=== PATIENT | male | born 1980 | race American Indian/Alaskan Native ===

== ENCOUNTER 2018-05-13 18:09 | Emergency (ER) | payer OTHER ==
[2018-05-13] MEDS ORDERED: ZOFRAN IV ONE (19:11)
[2018-05-13] MEDS ORDERED: MORPHINE IV ONE (19:11)
--- NOTE | 2018-05-13 19:11 | Emergency Department Report ---
ED Shortness of Breath HPI - General Chief Complaint: Dyspnea/Respdistress Stated Complaint: TOD Time Seen by Provider: 05/13/18 19:06 Source: patient Mode of arrival: Ambulatory Limitations: No Limitations - History of Present Illness Initial Comments: Patient is 38 years old male with no significant past medical history until one week ago when he was admitted to a hospital in [place] for pulmonary embolism and pneumonia. Patient is a tow truck driver. Patient flew back from [place] 3 days ago. Patient presented to the ER complaining of left sided chest pain associated with shortness of breath. Patient stated that he is having difficulty taking a deep breath. Patient denied any fever, nausea or vomiting. Patient is on Xarelto and he stated that he is compliant with his medication. MD Complaint: shortness of breath, chest pain -: Sudden Radiation: back Quality: sharp - Related Data Allergies Allergy/AdvReac Type Severity Reaction Status Date / Time No Known Allergies Allergy Unverified 05/13/18 18:54 ED Review of Systems ROS: Stated complaint: TOD Other details as noted in HPI Comment: All other systems reviewed and negative Constitutional: denies: chills, fever Respiratory: shortness of breath, SOB at rest. denies: cough, orthopnea, SOB with exertion, stridor, wheezing Cardiovascular: chest pain. denies: palpitations, dyspnea on exertion, orthopnea Gastrointestinal: denies: abdominal pain, nausea, vomiting, diarrhea, constipation, hematemesis, melena, hematochezia Musculoskeletal: back pain Neurological: denies: headache, weakness, numbness, paresthesias, confusion, abnormal gait ED Past Medical Hx - Past Medical History Previous Medical History?: Yes Hx Pulmonary Embolism: Yes Additional medical history: Pt says some type of heart issue - Surgical History Past Surgical History?: Yes Additional Surgical History: L knee - Social History Smoking Status: Unknown if ever smoked Substance Use Type: None ED Physical Exam - General Limitations: No Limitations General appearance: alert, in no apparent distress - Head Head exam: Present: atraumatic, normocephalic, normal inspection - Eye Eye exam: Present: normal appearance, PERRL - ENT ENT exam: Present: normal exam, normal orophraynx, mucous membranes moist - Neck Neck exam: Present: normal inspection, full ROM. Absent: tenderness, meningismus, lymphadenopathy, thyromegaly - Respiratory Respiratory exam: Present: normal lung sounds bilaterally. Absent: respiratory distress, wheezes, rales, rhonchi, stridor, chest wall tenderness, accessory muscle use, decreased breath sounds, prolonged expiratory - Cardiovascular Cardiovascular Exam: Present: regular rate, normal rhythm, normal heart sounds - GI/Abdominal GI/Abdominal exam: Present: soft, normal bowel sounds. Absent: distended, ten derness, guarding, rebound, rigid, organomegaly, mass, bruit, pulsatile mass, hernia - Extremities Exam Extremities exam: Present: normal inspection, full ROM, normal capillary refill. Absent: tenderness, pedal edema, joint swelling, calf tenderness - Back Exam Back exam: Present: normal inspection, full ROM. Absent: tenderness, CVA tenderness (R), CVA tenderness (L), muscle spasm, paraspinal tenderness, vertebral tenderness - Neurological Exam Neurological exam: Present: alert, oriented X3, CN II-XII intact, normal gait, reflexes normal - Skin Skin exam: Present: warm, intact, normal color ED Course Vital Signs 05/13/18 05/13/18 05/13/18 18:26 18:30 18:47 Temperature 98.4 F Pulse Rate 83 90 Respiratory 13 18 Rate Blood Pressure 120/62 106/83 O2 Sat by Pulse 97 97 100 Oximetry 05/13/18 05/13/18 05/13/18 18:50 19:00 19:16 Temperature Pulse Rate 84 80 83 Respiratory 14 15 19 Rate Blood Pressure 105/86 125/72 O2 Sat by Pulse 97 97 96 Oximetry 05/13/18 05/13/18 05/13/18 19:30 19:46 20:00 Temperature Pulse Rate 80 77 Respiratory 21 13 Rate Blood Pressure 119/81 119/81 113/75 O2 Sat by Pulse 96 97 98 Oximetry 05/13/18 05/13/18 05/13/18 20:16 20:30 20:46 Temperature Pulse Rate Respiratory Rate Blood Pressure 113/75 111/68 111/68 O2 Sat by Pulse 98 96 97 Oximetry 05/13/18 05/13/18 05/13/18 21:00 21:16 21:30 Temperature Pulse Rate Respiratory Rate Blood Pressure 111/68 96/64 96/64 O2 Sat by Pulse 97 98 96 Oximetry 05/13/18 05/13/18 05/13/18 21:45 21:46 22:00 Temperature Pulse Rate Respiratory 18 Rate Blood Pressure 112/72 112/59 O2 Sat by Pulse 99 97 97 Oximetry 05/13/18 23:00 Temperature Pulse Rate Respiratory Rate Blood Pressure 108/60 O2 Sat by Pulse 97 Oximetry ED Medical Decision Making - Lab Data Result diagrams: 05/13/18 19:05 05/13/18 19:05 - Radiology Data Radiology results: report reviewed Referring Physician: HALI CHILDS Patient Name: ANGELIQUE GAINES Date of : 1980 Sex: Male Report Date: 2018-05-14 Report Status: Finalized Findings [facility] [address] [place] [address] Cat Scan Report Signed Patient: ANGELIQUE GAINES MR#: [id number] : 1980 Acct:[id number] Age/Sex: 38 / M ADM Date: 05/13/18 Loc: ED Attending Dr: Ordering Physician: HALI CHILDS Date of Service: 05/13/18 Procedure(s): CT angio chest Accession Number(s): [id number] cc: HALI CHILDS FINAL REPORT PROCEDURE: CT ANGIO CHEST TECHNIQUE: Computerized tomographic angiography of the chest was performed after the IV injection of iodinated nonionic contrast including image processing. The image data was postprocessed using 2- dimensional multiplanar reformatted (MPR) and 3-dimensional (MIP and/or volume rendered) techniques. HISTORY: CHEST PAIN,SOB, PE 10 DAYS AGO COMPARISON: No prior studies are available for comparison. FINDINGS: Heart and pericardium: Normal. Thoracic aorta: Normal. Pulmonary vasculature: Normal. Lymph nodes: No enlarged thoracic lymph nodes. Lungs: Normal. Pleural space: No effusion, thickening, or pneumothorax. Musculoskeletal structures: No significant abnormality. Upper abdominal structures: No significant abnormality. IMPRESSION: Normal Examination Transcribed By: CO Dictated By: IMMANUEL MARKS MD Electronically Authenticated By: IMMANUEL MARKS MD Signed Date/Time: 05/14/18114 DD/ 3 TD/TT: 05/14/18113 - Medical Decision Making Patient is 38 years old male with no significant past medical history until one week ago when he was admitted to a hospital in [place] for pulmonary embolism and pneumonia. Patient is a tow truck driver. Patient flew back from [place] 3 days ago. Patient presented to the ER complaining of left sided chest pain associated with shortness of breath. Patient stated that he is having difficulty taking a deep breath. Patient denied any fever, nausea or vomiting. Patient is on Xarelto and he stated that he is compliant with his medication. CTA chest is negative for pulmonary embolism. Patient stated that he is feeling much better. I believe patient's symptoms is most likely related to pleurisy. I'll put patient on Naprosyn twice a day for 7 days and advised the patient to follow-up with his primary care physician in the next 2-3 days. Critical care attestation.: If time is entered above; I have spent that time in minutes in the direct care of this critically ill patient, excluding procedure time. ED Disposition Clinical Impression: Chest pain, Shortness of breath, Pleurisy Disposition: TO HOME OR SELFCARE Is pt being admited?: No Condition: Stable Instructions: Chest Pain (ED), Pleurisy (ED) Referrals: [facility] [Provider Group] - 3-5 Days
[2018-05-13 19:21] LABS: Hematocrit 44.3 % (35.5-45.6); Mean Corpuscular HGB Conc 34 % (32-34); Mean Corpuscular Volume 93 fl (84-94); Platelet Count 299 K/mm3 (140-440); Red Blood Count 4.76 M/mm3 (3.65-5.03); Red Cell Distribution Width 13.3 % (13.2-15.2)
[2018-05-13 19:31] LABS: INR 1.86 (0.87-1.13); Partial Thromboplastin Time 33.6 Sec. (24.2-36.6)
[2018-05-13 19:44] LABS: BUN/Creatinine Ratio 9; Blood Urea Nitrogen 9 mg/dL (9-20); Hemolysis Index 15
[2018-05-13 19:58] LABS: Alanine Aminotransferase 64 units/L (7-56); Albumin 4.3 g/dL (3.9-5)
[2018-05-13 19:58] LABS: Basophils % (Manual) 0 % (0.0-1.8); Total Cells Counted 100
[2018-05-13 19:59] LABS: Anisocytosis 1+
[2018-05-13 20:01] LABS: Bilirubin,Direct < 0.2 mg/dL (0-0.2)
--- NOTE | 2018-05-13 20:16 | XRay Report ---
FINAL REPORT PROCEDURE: XR CHEST ROUTINE 2V TECHNIQUE: PA and lateral view of the chest were obtained. HISTORY: Shortness of breath COMPARISON: No prior studies are available for comparison. FINDINGS: Heart size and pulmonary vasculature appear normal. Lungs are clear. No infiltrates masses effusions or pneumothorax are visualized. No acute bony abnormalities are seen IMPRESSION: Negative exam.
[2018-05-13] MEDS ORDERED: ZOFRAN ODT ONE (20:22)
--- NOTE | 2018-05-14 01:15 | Cat Scan Report ---
FINAL REPORT PROCEDURE: CT ANGIO CHEST TECHNIQUE: Computerized tomographic angiography of the chest was performed after the IV injection of iodinated nonionic contrast including image processing. The image data was postprocessed using 2-dim ensional multiplanar reformatted (MPR) and 3-dimensional (MIP and/or volume rendered) techniques. HISTORY: CHEST PAIN,SOB, PE 10 DAYS AGO COMPARISON: No prior studies are available for comparison. FINDINGS: Heart and pericardium: Normal. Thoracic aorta: Normal. Pulmonary vasculature: Normal. Lymph nodes: No enlarged thoracic lymph nodes. Lungs: Normal. Pleural space: No effusion, thickening, or pneumothorax. Musculoskeletal structures: No significant abnormality. Upper abdominal structures: No significant abnormality. IMPRESSION: Normal Examination
[2018-05-14 01:53] VITALS: BP 103/55
== END 2018-05-14 01:52 | disposition home or self-care (01) ==
LOC: EDBD → ED 18:09
DX: R07.89 Other chest pain (principal); R09.1 Pleurisy
CPT/HCPCS: 36415; 71046; 71275; 80048; 80076; 85007; 85025; 85379; 85610; 85730; 93005; 93010; 96374; 96375; 99284; J2270; J2405; Q9967; Q0162

== ENCOUNTER 2018-05-28 11:59 | Emergency (ER) | payer OTHER ==
--- NOTE | 2018-05-28 12:33 | Emergency Department Report ---
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 Plan CXR and Labs EKG
--- NOTE | 2018-05-28 13:08 | Emergency Department Report ---
ED Chest Pain HPI - General Chief Complaint: Chest Pain Stated Complaint: PAIN UPON RESPIRATION Time Seen by Provider: 05/28/18 12:22 Source: patient Mode of arrival: Ambulatory Limitations: No Limitations - History of Present Illness Initial Comments: 38-year-old male with a past medical history of pulmonary embolism diagnosed in [place] in April presents to the hospital continual left sided chest pain and intermittent shortness of breath. Symptoms ongoing since April. Patient is a local company truck driver. He he was seen here on May 14 complaining of pleuritic left-sided chest pain. CT angiogram at that time was negative for pulmonary embolism. Patient was placed on Naprosyn, Zofran, tramadol and addition to his prescribed Xarelto. He presents to the hospital because continues to have chest pain described as a tightness radiating to his left shoulder and prescribed meds are not helping. He also has pain with swallowing, talking, and movement. Patient has not followed up with a primary care doctor. He states that he is currently involved in a Workmen's claim regarding his pulmonary obtained while on the job. Patient was prescribed Xarelto prescribed by in [place]. He has 3 tablets left of Xarelto 15mg BID in his bottle. He is yet to follow up with a primary care doctor or [facility]. Severity scale (0 -10): 10 - Related Data Previous Rx's Medication Instructions Recorded Last Taken Type Naproxen [Naprosyn] 500 mg PO BID #14 tablet 05/14/18 Unknown Rx Ondansetron [Zofran Odt] 4 mg PO Q8HR PRN #14 tab.rapdis 05/14/18 Unknown Rx RX: traMADol [Ultram 50 MG tab] 50 mg PO Q4HR PRN #14 tablet 05/14/18 Unknown Rx Famotidine [Pepcid] 20 mg PO BID #60 tablet 05/28/18 Unknown Rx HYDROcodone/APAP 5-325 [[place] 1 each PO Q6HR PRN #14 tablet 05/28/18 Unknown Rx 5/325] Rivaroxaban [Xarelto] 20 mg PO QDAY #30 tab 05/28/18 Unknown Rx Allergies Allergy/AdvReac Type Severity Reaction Status Date / Time No Known Allergies Allergy Unverified 05/13/18 18:54 Heart Score - HEART Score History: Slightly suspicious EKG: Normal Age: < 45 Risk factors: No known risk factors Troponin: < normal limit HEART Score: 0 ED Review of Systems ROS: Stated complaint: PAIN UPON RESPIRATION Other details as noted in HPI Comment: All other systems reviewed and negative ED Past Medical Hx - Past Medical History Hx Pulmonary Embolism: Yes Additional medical history: Pt says some type of heart issue, PE - Surgical History Additional Surgical History: L knee - Social History Smoking Status: Former Smoker Substance Use Type: None - Medications Home Medications: Home Medications Medication Instructions Recorded Confirmed Last Taken Type Naproxen [Naprosyn] 500 mg PO BID #14 tablet 05/14/18 Unknown Rx Ondansetron [Zofran Odt] 4 mg PO Q8HR PRN #14 tab.rapdis 05/14/18 Unknown Rx RX: traMADol [Ultram 50 MG tab] 50 mg PO Q4HR PRN #14 tablet 05/14/18 Unknown Rx Famotidine [Pepcid] 20 mg PO BID #60 tablet 05/28/18 Unknown Rx HYDROcodone/APAP 5-325 [[place] 1 each PO Q6HR PRN #14 tablet 05/28/18 Unknown Rx 5/325] Rivaroxaban [Xarelto] 20 mg PO QDAY #30 tab 05/28/18 Unknown Rx ED Physical Exam - General Limitations: No Limitations - Other Other exam information: General: No limitations, patient is alert in no acute distress Head exam: Atraumatic, normocephalic Eyes exam: Normal appearance, nonicteric sclerae ENT: Moist mucous membrane, normal oropharynx Neck exam: Normal inspection, full range of motion, no meningismus nontender Respiratory exam: Clear to auscultation bilateral, no wheezes, rales, crackles. Reproducible sternal and left-sided chest wall tenderness to palpation Cardiovascular: Normal rate and rhythm, normal heart sounds Abdomen: Soft, nondistended, epigastric tenderness, with normal bowel sounds, no rebound, or guarding Extremity: Full range of motion normal inspection no deformity, no calf tenderness or edema Back: Normal Inspection, full range of motion, no tenderness Neurologic: Alert, oriented x3, cranial nerves intact, no motor or sensory deficit Psychiatric: normal affect, normal mood Skin: Warm, dry, intact ED Course Vital Signs 05/28/18 05/28/18 05/28/18 12:28 13:47 13:48 Temperature 98.7 F Pulse Rate 100 H 95 H Respiratory 20 18 18 Rate Blood Pressure 142/85 Blood Pressure 125/75 [Left] O2 Sat by Pulse 98 99 Oximetry 05/28/18 17:53 Temperature Pulse Rate 77 Respiratory 18 Rate Blood Pressure Blood Pressure 130/78 [Left] O2 Sat by Pulse 99 Oximetry - Reevaluation(s) Reevaluation #1: 05/28/18 16:13 Patient continues to have reproducible chest wall tenderness. When I palpate his chest he moves my hand away stating it hurts. He also has epigastric tend erness on exam. Minimum improvement with [place] reported. Maalox, viscous lidocaine, and Percocet ordered. I spent an extensive amount of time speaking to the patient because he think his pain is because his left lung is swollen. I tried to explain what pleurisy was in that his lung was not physically swollen. I explained that his last CT chest and chest x-ray today are normal. He has no hypoxia or tachypnea and has a negative d-dimer. I Also tried to explain that he needs to continue his Xarelto even though his last CTA did not show a pulmonary embolism. I stressed that he needs to be seen by a [facility] and a primary care doctor in the ER is no substitute for that. He is requesting a note to medically clear him to go back to work. There is no emergent reason why he cannot go back to work but once again is stressed that he needs to follow up. DARRON score - Darron Score Age > 65: (0) No Aspirin use within the Past 7 Days: (0) No 3 or more CAD Risk Factors: (0) No 2 or more Angina events in past 24 hrs: (0) No Known CAD with more than 50% Stenosis: (0) No Elevated Cardiac Markers: (0) No ST Deviation Greater than 0.5mm: (0) No DARRON Score: 0 ED Medical Decision Making - Lab Data Result diagrams: 05/28/18 13:05 05/28/18 13:08 Lab Results 05/28/18 05/28/18 05/28/18 Range/Units 13:05 13:08 13:08 WBC 5.0 (4.5-11.0) K/mm3 RBC 5.06 H (3.65-5.03) M/mm3 Hgb 15.6 H (11.8-15.2) gm/dl Hct 46.4 H (35.5-45.6) % MCV 92 (84-94) fl MCH 31 (28-32) pg MCHC 34 (32-34) % RDW 13.4 (13.2-15.2) % Plt Count 197 (140-440) K/mm3 Add Manual Diff Complete Total Counted 100 Seg Neutrophils % Desulfurizer Hand Seg Neuts % (Manual) 35.0 L (40.0-70.0) % Band Neutrophils % 0 % Lymphocytes % (Manual) 53.0 H (13.4-35.0) % Reactive Lymphs % (Man) 0 % Monocytes % (Manual) 7.0 (0.0-7.3) % Eosinophils % (Manual) 5.0 H (0.0-4.3) % Basophils % (Manual) 0 (0.0-1.8) % Metamyelocytes % 0 % Myelocytes % 0 % Promyelocytes % 0 % Blast Cells % 0 % Nucleated RBC % Not Reportable Seg Neutrophils # Man 1.8 (1.8-7.7) K/mm3 Band Neutrophils # 0.0 K/mm3 Lymphocytes # (Manual) 2.7 (1.2-5.4) K/mm3 Abs React Lymphs (Man) 0.0 K/mm3 Monocytes # (Manual) 0.4 (0.0-0.8) K/mm3 Eosinophils # (Manual) 0.3 (0.0-0.4) K/mm3 Basophils # (Manual) 0.0 (0.0-0.1) K/mm3 Metamyelocytes # 0.0 K/mm3 Myelocytes # 0.0 K/mm3 Promyelocytes # 0.0 K/mm3 Blast Cells # 0.0 K/mm3 WBC Morphology Not Reportable Hypersegmented Neuts Not Reportable Hyposegmented Neuts Not Reportable Hypogranular Neuts Not Reportable Smudge Cells Not Reportable Toxic Granulation Not Reportable Toxic Vacuolation Not Reportable Dohle Bodies Not Reportable Pelger-Huet Anomaly Not Reportable [place] Rods Not Reportable Platelet Estimate Consistent w auto Clumped Platelets Not Reportable Plt Clumps, EDTA Not Reportable Large Platelets Not Reportable Giant Platelets Not Reportable Platelet Satelliting Not Reportable Plt Morphology Comment Not Reportable RBC Morphology Not Reportable Dimorphic RBCs Not Reportable Polychromasia Not Reportable Hypochromasia Not Reportable Poikilocytosis Not Reportable Anisocytosis 1+ Microcytosis Not Reportable Macrocytosis Not Reportable Spherocytes Not Reportable Pappenheimer Bodies Not Reportable Sickle Cells Not Reportable Target Cells Not Reportable Tear Drop Cells Not Reportable Ovalocytes Not Reportable Helmet Cells Not Reportable Vent[place] Bodies Not Reportable Viola Rings Not Reportable Keri Cells Not Reportable Bite Cells Not Reportable Crenated Cell Not Reportable Elliptocytes Not Reportable Acanthocytes (Spur) Not Reportable Rouleaux Not Reportable Hemoglobin C Crystals Not Reportable Schistocytes Not Reportable Malaria parasites Not Reportable Tao Bodies Not Reportable Hem Pathologist Commnt No PT 13.3 (12.2-14.9) Sec. INR 0.95 (0.87-1.13) APTT 22.4 L (24.2-36.6) Sec. D-Dimer < 135.00 (0-234) ng/mlDDU Sodium 138 (137-145) mmol/L Potassium 4.7 (3.6-5.0) mmol/L Chloride 99.3 (98-107) mmol/L Carbon Dioxide 26 (22-30) mmol/L Anion Gap 17 mmol/L BUN 7 L (9-20) mg/dL Creatinine 0.9 (0.8-1.5) mg/dL Estimated GFR > 60 ml/min BUN/Creatinine Ratio 8 % Glucose 101 H (75-100) mg/dL Calcium 9.7 (8.4-10.2) mg/dL Total Bilirubin 0.40 (0.1-1.2) mg/dL AST 36 (5-40) units/L ALT 58 H (7-56) units/L Alkaline Phosphatase 65 (35-129) units/L Total Creatine Kinase 275 H (55-170) units/L CK-MB (CK-2) 1.8 (0.0-4.0) ng/mL CK-MB (CK-2) Rel Index 0.6 (0-4) Troponin T < 0.010 (0.00-0.029) ng/mL Total Protein 7.2 (6.3-8.2) g/dL Albumin 4.4 (3.9-5) g/dL Albumin/Globulin Ratio 1.6 % Lipase 52 (13-60) units/L 05/28/18 Range/Units 15:21 WBC (4.5-11.0) K/mm3 RBC (3.65-5.03) M/mm3 Hgb (11.8-15.2) gm/dl Hct (35.5-45.6) % MCV (84-94) fl MCH (28-32) pg MCHC (32-34) % RDW (13.2-15.2) % Plt Count (140-440) K/mm3 Add Manual Diff Total Counted Seg Neutrophils % Seg Neuts % (Manual) (40.0-70.0) % Band Neutrophils % % Lymphocytes % (Manual) (13.4-35.0) % Reactive Lymphs % (Man) % Monocytes % (Manual) (0.0-7.3) % Eosinophils % (Manual) (0.0-4.3) % Basophils % (Manual) (0.0-1.8) % Metamyelocytes % % Myelocytes % % Promyelocytes % % Blast Cells % % Nucleated RBC % Seg Neutrophils # Man (1.8-7.7) K/mm3 Band Neutrophils # K/mm3 Lymphocytes # (Manual) (1.2-5.4) K/mm3 Abs React Lymphs (Man) K/mm3 Monocytes # (Manual) (0.0-0.8) K/mm3 Eosinophils # (Manual) (0.0-0.4) K/mm3 Basophils # (Manual) (0.0-0.1) K/mm3 Metamyelocytes # K/mm3 Myelocytes # K/mm3 Promyelocytes # K/mm3 Blast Cells # K/mm3 WBC Morphology Hypersegmented Neuts Hyposegmented Neuts Hypogranular Neuts Smudge Cells Toxic Granulation Toxic Vacuolation Dohle Bodies Pelger-Huet Anomaly [place] Rods Platelet Estimate Clumped Platelets Plt Clumps, EDTA Large Platelets Giant Platelets Platelet Satelliting Plt Morphology Comment RBC Morphology Dimorphic RBCs Polychromasia Hypochromasia Poikilocytosis Anisocytosis Microcytosis Macrocytosis Spherocytes Pappenheimer Bodies Sickle Cells Target Cells Tear Drop Cells Ovalocytes Helmet Cells [place] Bodies Viola Rings [place] Cells Bite Cells Crenated Cell Elliptocytes Acanthocytes (Spur) Rouleaux Hemoglobin C Crystals Schistocytes Malaria parasites Tao Bodies Hem Pathologist Commnt PT (12.2-14.9) Sec. INR (0.87-1.13) APTT (24.2-36.6) Sec. D-Dimer (0-234) ng/mlDDU Sodium (137-145) mmol/L Potassium (3.6-5.0) mmol/L Chloride (98-107) mmol/L Carbon Dioxide (22-30) mmol/L Anion Gap mmol/L BUN (9-20) mg/dL Creatinine (0.8-1.5) mg/dL Estimated GFR ml/min BUN/Creatinine Ratio % Glucose (75-100) mg/dL Calcium (8.4-10.2) mg/dL Total Bilirubin (0.1-1.2) mg/dL AST (5-40) units/L ALT (7-56) units/L Alkaline Phosphatase (35-129) units/L Total Creatine Kinase (55-170) units/L CK-MB (CK-2) (0.0-4.0) ng/mL CK-MB (CK-2) Rel Index (0-4) Troponin T < 0.010 (0.00-0.029) ng/mL Total Protein (6.3-8.2) g/dL Albumin (3.9-5) g/dL Albumin/Globulin Ratio % Lipase (13-60) units/L - EKG Data -: EKG Interpreted by [facility] EKG shows normal: sinus rhythm, axis (qrs 66), QRS complexes (qrsd 85), ST-T waves (no stemi/t inv) Rate: normal (85) - EKG Data When compared to previous EKG there are: no significant change - Radiology Data Radiology results: report reviewed ROUTINE CHEST, TWO VIEWS: HISTORY: Short of breath. The trachea, heart, mediastinal contour, lung tang and bony thorax are unremarkable. No significant change since 05/13/18. IMPRESSION: Unremarkable chest x-ray. - Medical Decision Making History is negative d-dimer, negative chest x-ray, recent CT angios chest, normal pulse ox, reproducible chest pain on examination.low risk cardiac pt with unchanged ekg and trop neg x2. Patient also has epigastric tenderness H2 aron will be prescribed. Instructed to discontinue Naprosyn while on x arellto. Xarelto will be represcribed recent diagnosis of pulmonary embolism. Unclear patient also had a DVT since records are not currently available. Outpatient follow-up with hematology and PMD once again has been stressed Patient provided a copy of his CAT scan and chest x-ray - Differential Diagnosis PA, PE, angina, pleurisy Critical Care Time: No Critical care attestation.: If time is entered above; I have spent that time in minutes in the direct care of this critically ill patient, excluding procedure time. ED Disposition Clinical Impression: Chest wall pain, Epigastric pain, Hx of pulmonary embolus Disposition: TO HOME OR SELFCARE Is pt being admited?: No Does the pt Need Aspirin: No Condition: Stable Instructions: Chest Pain (ED), Abdominal Pain (ED) Additional Instructions: Take the medication as prescribed. Stop prescribed Naprosyn. It is very important and should follow-up with a primary care doctor and a [facility] for further workup and evaluation. Return if symptoms worsen as indicated by your discharge instructions Prescriptions: Famotidine [Pepcid] 20 mg PO BID #60 tablet HYDROcodone/APAP 5-325 [[place] 5/325] 1 each PO Q6HR PRN #14 tablet PRN Reason: Pain Rivaroxaban [Xarelto] 20 mg PO QDAY #30 tab Referrals: [facility] MD CARLA [Primary Care Provider] - 3-5 Days SHANT ADHIKARI MD [Staff Physician] - 3-5 Days (Transcription Typist) STEFANIE RUBI MD [Staff Physician] - 3-5 Days ( primary care doctor) MONICO SETH MD [Staff Physician] - 3-5 Days (GI doctor ) Time of Disposition: 17:25
[2018-05-28] MEDS ORDERED: NORCO 5/325 PO ONE (13:09)
[2018-05-28 13:15] LABS: Hematocrit 46.4 % (35.5-45.6); Hemoglobin 15.6 gm/dl (11.8-15.2); Mean Corpuscular HGB Conc 34 % (32-34); Mean Corpuscular Volume 92 fl (84-94); Platelet Count 197 K/mm3 (140-440); Red Blood Count 5.06 M/mm3 (3.65-5.03); Red Cell Distribution Width 13.4 % (13.2-15.2)
--- NOTE | 2018-05-28 13:20 | XRay Report ---
ROUTINE CHEST, TWO VIEWS: HISTORY: Short of breath. The trachea, heart, mediastinal contour, lung tang and bony thorax are unremarkable. No significant change since 05/13/18. IMPRESSION: Unremarkable chest x-ray.
[2018-05-28 13:27] LABS: INR 0.95 (0.87-1.13); Partial Thromboplastin Time 22.4 Sec. (24.2-36.6)
[2018-05-28 13:32] LABS: Creatine Kinase MB 1.8 ng/mL (0.0-4.0)
[2018-05-28 13:35] LABS: Alanine Aminotransferase 58 units/L (7-56); Albumin 4.4 g/dL (3.9-5); BUN/Creatinine Ratio 8; Blood Urea Nitrogen 7 mg/dL (9-20); Calcium 9.7 mg/dL (8.4-10.2); Hemolysis Index 44
[2018-05-28 13:52] LABS: Anisocytosis 1+; Basophils % (Manual) 0 % (0.0-1.8); Platelet Estimate Consistent w Auto; Total Cells Counted 100
[2018-05-28] MEDS ORDERED: ALUM-MAG HYDROX-SIMETH 200-200-20MG/5ML PO ONE (16:10)
[2018-05-28] MEDS ORDERED: LIDOCAINE VISCOUS 2% PO ONE (16:10)
[2018-05-28] MEDS ORDERED: PERCOCET 5/325 PO ONE (16:13)
[2018-05-28 17:54] VITALS: BP 130/78
== END 2018-05-28 17:54 | disposition home or self-care (01) ==
LOC: EDBD → ED 11:59
DX: R07.89 Other chest pain (principal); R10.13 Epigastric pain; Z86.711 Personal history of pulmonary embolism; Z87.891 Personal history of nicotine dependence
CPT/HCPCS: 36415; 71046; 80053; 82550; 82553; 83690; 84484; 85007; 85025; 85379; 85610; 85730; 93005; 93010

== ENCOUNTER 2019-10-10 12:01 | Emergency (ER) | payer SELFPAY ==
[2019-10-10 12:42] VITALS: BP 125/79
--- NOTE | 2019-10-10 12:46 | Emergency Department Report ---
ED General Adult HPI - General Chief complaint: Dental/Oral Stated complaint: TEETH PAIN Time Seen by Provider: 10/10/19 12:39 Source: patient Mode of arrival: Ambulatory Limitations: No Limitations - History of Present Illness Initial comments: 40-year-old -[place] male patient presents with complaints of left dental pain for the past 3 months, worsening over the past few days. He denies any fever/chills/sweats, difficulty swallowing, or difficulty opening his jaw. He rates his pain as a 8/10 in severity and states it worsens with eating. Patient is not currently following with a dental specialist and states he does not have dental insurance. - Related Data Previous Rx's Medication Instructions Recorded Last Taken Type Naproxen [Naprosyn] 500 mg PO BID #14 tablet 05/14/18 Unknown Rx Ondansetron [Zofran Odt] 4 mg PO Q8HR PRN #14 tab.rapdis 05/14/18 Unknown Rx traMADoL [Ultram 50 MG tab] 50 mg PO Q4HR PRN #14 tablet 05/14/18 Unknown Rx Famotidine [Pepcid] 20 mg PO BID #60 tablet 05/28/18 Unknown Rx HYDROcodone/APAP 5-325 [[place] 1 each PO Q6HR PRN #14 tablet 05/28/18 Unknown Rx 5/325] Rivaroxaban [Xarelto] 20 mg PO QDAY #30 tab 05/28/18 Unknown Rx Amoxicillin [Trimox CAP] 500 mg PO Q8H 7 Days #21 capsule 10/10/19 Unknown Rx Allergies Allergy/AdvReac Type Severity Reaction Status Date / Time No Known Allergies Allergy Unverified 05/13/18 18:54 ED Review of Systems ROS: Stated complaint: TEETH PAIN Other details as noted in HPI Constitutional: denies: chills, fever ENT: denies: throat pain Respiratory: denies: cough Cardiovascular: denies: chest pain Skin: denies: rash, lesions Neurological: denies: headache, numbness ED Past Medical Hx - Past Medical History Previous Medical History?: Yes Hx Pulmonary Embolism: Yes Additional medical history: Pt says some type of heart issue, PE - Surgical History Past Surgical History?: Yes Additional Surgical History: L knee - Social History Smoking Status: Never Smoker Substance Use Type: None - Medications Home Medications: Home Medications Medication Instructions Recorded Confirmed Last Taken Type Naproxen [Naprosyn] 500 mg PO BID #14 tablet 05/14/18 Unknown Rx Ondansetron [Zofran Odt] 4 mg PO Q8HR PRN #14 tab.rapdis 05/14/18 Unknown Rx traMADoL [Ultram 50 MG tab] 50 mg PO Q4HR PRN #14 tablet 05/14/18 Unknown Rx Famotidine [Pepcid] 20 mg PO BID #60 tablet 05/28/18 Unknown Rx HYDROcodone/APAP 5-325 [[place] 1 each PO Q6HR PRN #14 tablet 05/28/18 Unknown Rx 5/325] Rivaroxaban [Xarelto] 20 mg PO QDAY #30 tab 05/28/18 Unknown Rx Amoxicillin [Trimox CAP] 500 mg PO Q8H 7 Days #21 capsule 10/10/19 Unknown Rx ED Physical Exam - General Limitations: No Limitations - Head Head exam: Present: atraumatic, normocephalic - Eye Eye exam: Present: normal appearance - Expanded ENT Exam Expanded Mouth exam: Absent: drooling, trismus, muffled voice Teeth exam: Present: dental tenderness #, other 1 - Dental Tenderness, Other (Erythema and swelling noted) Throat exam: Negative: normal inspection, tonsillar erythema, tonsillomegaly - Respiratory Respiratory exam: Absent: respiratory distress - Cardiovascular Cardiovascular Exam: Present: regular rate - Neurological Exam Neurological exam: Present: alert, oriented X3 - Psychiatric Psychiatric exam: Present: normal affect, normal mood - Skin Skin exam: Present: warm, dry, intact, normal color. Absent: rash, cyanosis, erythema, petechiae ED Course Vital Signs 10/10/19 12:39 Temperature 98.4 F Pulse Rate 78 Respiratory 18 Rate Blood Pressure 125/79 O2 Sat by Pulse 97 Oximetry ED Medical Decision Making - Medical Decision Making Patient here with left-sided dental pain for the past 3 months that is been wo rsening over the past 3 days. On exam there is erythema and swelling of the left lower molar area. No visible abscess is noted. Patient's vitals are normal and he is well-appearing and stable for discharge home. Prescription for Amoxil given. Patient provided with dental clinic list and informed to follow- up within 3 days for further evaluation and treatment. Strict return precautions were discussed in detail with patient who verbalizes understanding. Critical care attestation.: If time is entered above; I have spent that time in minutes in the direct care of this critically ill patient, excluding procedure time. ED Disposition Clinical Impression: Dental infection Disposition: DC- TO HOME OR SELFCARE Is pt being admited?: No Condition: Stable Instructions: Toothache (ED), Dental Abscess (ED) Additional Instructions: Please follow-up with a dental specialist from the list provided within 3 days. If you develop any new or worsening symptoms, seek immediate emergency treatment. Prescriptions: Amoxicillin [Trimox CAP] 500 mg PO Q8H 7 Days #21 capsule
== END 2019-10-10 12:52 | disposition home or self-care (01) ==
LOC: ED 12:01
DX: K04.7 Periapical abscess without sinus (principal); Z79.899 Other long term (current) drug therapy; Z98.890 Other specified postprocedural states
CPT/HCPCS: 99282

== ENCOUNTER 2020-08-20 20:18 | Emergency (ER) | payer SELFPAY ==
[2020-08-20 20:29] VITALS: BP 131/80
--- NOTE | 2020-08-20 20:52 | Emergency Department Report ---
- General Chief complaint: Medical Clearance Stated complaint: FUNGAL INFECTION Time Seen by Provider: 08/20/20 20:28 Source: patient Mode of arrival: Ambulatory Limitations: No Limitations - History of Present Illness Initial comments: Patient is a 41-year-old male presents emergency room with complaints of tinea corporis that began a few days ago. He has associated itching. Patient states that he has had this in the past and was previously prescribed an antifungal ointment which helps relieve the symptoms. He denies any new soaps, lotions, detergents, medications anything new that he is aware of. He denies any known allergies. He denies any facial swelling, difficulty swallowing, difficulty breathing, fever, nausea, vomiting, diarrhea. He denies anyone else with the same rash. No other past medical history. No allergies to medications. - Related Data Previous Rx's Medication Instructions Recorded Last Taken Type Naproxen [Naprosyn] 500 mg PO BID #14 tablet 05/14/18 Unknown Rx Ondansetron [Zofran Odt] 4 mg PO Q8HR PRN #14 tab.rapdis 05/14/18 Unknown Rx traMADoL [Ultram 50 MG tab] 50 mg PO Q4HR PRN #14 tablet 05/14/18 Unknown Rx Famotidine [Pepcid] 20 mg PO BID #60 tablet 05/28/18 Unknown Rx HYDROcodone/APAP 5-325 [[place] 1 each PO Q6HR PRN #14 tablet 05/28/18 Unknown Rx 5/325] Rivaroxaban [Xarelto] 20 mg PO QDAY #30 tab 05/28/18 Unknown Rx Amoxicillin [Trimox CAP] 500 mg PO Q8H 7 Days #21 capsule 10/10/19 Unknown Rx Clotrimazole/Betamethasone Dip 1 applicatio TP BID #1 cream..g. 08/20/20 Unknown Rx [Lotrisone Cream] Allergies Allergy/AdvReac Type Severity Reaction Status Date / Time No Known Allergies Allergy Verified 10/19/19 14:09 Abscess Boil HPI - HPI Chief Complaint: Medical Clearance Stated Complaint: FUNGAL INFECTION Time Seen by Provider: 08/20/20 20:28 Home Medications: Previous Rx's Medication Instructions Recorded Last Taken Type Naproxen [Naprosyn] 500 mg PO BID #14 tablet 05/14/18 Unknown Rx Ondansetron [Zofran Odt] 4 mg PO Q8HR PRN #14 tab.rapdis 05/14/18 Unknown Rx traMADoL [Ultram 50 MG tab] 50 mg PO Q4HR PRN #14 tablet 05/14/18 Unknown Rx Famotidine [Pepcid] 20 mg PO BID #60 tablet 05/28/18 Unknown Rx HYDROcodone/APAP 5-325 [[place] 1 each PO Q6HR PRN #14 tablet 05/28/18 Unknown Rx 5/325] Rivaroxaban [Xarelto] 20 mg PO QDAY #30 tab 05/28/18 Unknown Rx Amoxicillin [Trimox CAP] 500 mg PO Q8H 7 Days #21 capsule 10/10/19 Unknown Rx Clotrimazole/Betamethasone Dip 1 applicatio TP BID #1 cream..g. 08/20/20 Unknown Rx [Lotrisone Cream] Allergies/Adverse Reactions: Allergies Allergy/AdvReac Type Severity Reaction Status Date / Time No Known Allergies Allergy Verified 10/19/19 14:09 ED Review of Systems ROS: Stated complaint: FUNGAL INFECTION Other details as noted in HPI Comment: All other systems reviewed and negative ED Past Medical Hx - Past Medical History Previous Medical History?: No Hx Pulmonary Embolism: Yes Hx COPD: Yes Additional medical history: Pt says some type of heart issue, PE - Surgical History Past Surgical History?: Yes Additional Surgical History: L knee - Social History Smoking Status: Former Smoker Substance Use Type: None - Medications Home Medications: Home Medications Medication Instructions Recorded Confirmed Last Taken Type Naproxen [Naprosyn] 500 mg PO BID #14 tablet 05/14/18 Unknown Rx Ondansetron [Zofran Odt] 4 mg PO Q8HR PRN #14 tab.rapdis 05/14/18 Unknown Rx traMADoL [Ultram 50 MG tab] 50 mg PO Q4HR PRN #14 tablet 05/14/18 Unknown Rx Famotidine [Pepcid] 20 mg PO BID #60 tablet 05/28/18 Unknown Rx HYDROcodone/APAP 5-325 [[place] 1 each PO Q6HR PRN #14 tablet 05/28/18 Unknown Rx 5/325] Rivaroxaban [Xarelto] 20 mg PO QDAY #30 tab 05/28/18 Unknown Rx Amoxicillin [Trimox CAP] 500 mg PO Q8H 7 Days #21 capsule 10/10/19 Unknown Rx Clotrimazole/Betamethasone Dip 1 applicatio TP BID #1 cream..g. 08/20/20 Unknown Rx [Lotrisone Cream] ED Physical Exam - General Limitations: No Limitations General appearance: alert, in no apparent distress - Head Head exam: Present: atraumatic, normocephalic - Eye Eye exam: Present: normal appearance - ENT ENT exam: Present: mucous membranes moist - Respiratory Respiratory exam: Absent: respiratory distress, accessory muscle use - Neurological Exam Neurological exam: Present: alert, oriented X3 - Psychiatric Psychiatric exam: Present: normal affect, normal mood - Skin Skin exam: Present: warm, dry, other (scaling and mild erythema to the bilateral UE, small papules present, no blistering, no skin denuding) ED Course Vital Signs 08/20/20 20:28 Temperature 98.1 F Pulse Rate 97 H Respiratory 20 Rate Blood Pressure 131/80 O2 Sat by Pulse 94 Oximetry ED Medical Decision Making - Medical Decision Making Patient is a 41-year-old male presents emergency room with complaints of tinea corporis that began a few days ago. He has associated itching. Patient states that he has had this in the past and was previously prescribed an antifungal ointment which helps relieve the symptoms. He denies any new soaps, lotions, detergents, medications anything new that he is aware of. He denies any known allergies. He denies any facial swelling, difficulty swallowing, difficulty breathing, fever, nausea, vomiting, diarrhea. He denies anyone else with the same rash. No other past medical history. No allergies to medications. Vitals are stable. On exam:scaling and mild erythema to the bilateral UE, small papules present, no blistering, no skin denuding. Examination appears consistent with tinea corporis. Patient given prescription for Lotrisone. Advised patient Please use medication as prescribed. Follow-up with your primary care doctor. Return to emergency room for new or worsening symptoms. Critical care attestation.: If time is entered above; I have spent that time in minutes in the direct care of this critically ill patient, excluding procedure time. ED Disposition Clinical Impression: Tinea corporis Disposition: - TO HOME OR SELFCARE Is pt being admited?: No Does the pt Need Aspirin: No Condition: Stable Instructions: Body Ringworm Additional Instructions: Please use medication as prescribed. Follow-up with your primary care doctor. Return to emergency room for new or worsening symptoms. Prescriptions: Clotrimazole/Betamethasone Dip [Lotrisone Cream] 1 applicatio TP BID #1 cream..g. Referrals: PELON GUADALUPE MD [Staff Physician] - 3-5 Days [facility] [Provider Group] - 3-5 Days [facility], [LAB/CONTRACT] - 3-5 Days [facility] [Outside] - 3-5 Days Time of Disposition: 20:51 Print Language: DIVEHI
== END 2020-08-20 21:00 | disposition home or self-care (01) ==
LOC: ED 20:18
DX: B35.4 Tinea corporis (principal); J44.9 Chronic obstructive pulmonary disease, unspecified; Z86.711 Personal history of pulmonary embolism; Z98.890 Other specified postprocedural states; Z87.891 Personal history of nicotine dependence; Z79.899 Other long term (current) drug therapy
CPT/HCPCS: 99282

== ENCOUNTER 2021-09-14 17:35 | Emergency (ER) | payer SELFPAY ==
[2021-09-14 21:04] VITALS: BP 151/90
== END 2021-09-15 04:45 | disposition left against medical advice (07) ==
LOC: ED 17:35
DX: B49 Unspecified mycosis (principal); Z76.0 Encounter for issue of repeat prescription; Z53.21 Procedure and treatment not carried out due to patient leaving prior to being seen by health care provider